=== PATIENT | male | born 1950 | race Caucasian/White ===

== ENCOUNTER 2017-08-27 20:17 | Emergency (ER) | payer MEDICARE, MEDICAID ==
[~2017-08-27] VITALS: Ht 172.7 cm; Wt 128.8 kg
[~2017-08-27 20:17] MED LIST: BENA5TAB5 OR; FURO80TA; METF-370 OR; NAPR1SUS OR; PIOG45TA8; POTA12PO2 OR
[2017-08-27 21:17] LABS: Basophils # (auto) 0.1 uL; Basophils % (auto) 0.7 % (0.0-2.0); Eosinophils # (auto) 0 uL; Eosinophils % (auto) 0.3 % (0.0-7.0); Hematocrit 44.9 % (41.0-53.0); Hemoglobin 15.1 g/dL (13.5-17.5); Lymphocytes # (auto) 0.7 uL; Lymphocytes % (auto) 8.8 % (10.0-50.0); Mean Corpuscular Hemoglobin 31.1 pg (28.0-32.0); Mean Corpuscular Hgb Conc. 33.7 g/dL (32.0-36.0); Mean Corpuscular Volume 92.3 fL (80.0-100.0); Monocytes # (auto) 0.9 uL; Monocytes % (auto) 11.5 % (0.0-12.0); Neutrophils # (auto) 6.3 uL; Neutrophils % (auto) 78.7 % (37.0-80.0); Nucleated Red Blood Cells % 0.1 %; Platelet Count (auto) 159 10^3/uL (140-450); Red Blood Cells 4.87 10^6/uL (4.5-5.90); Red Cell Distribution Width 14.9 % (11.8-14.3)
[2017-08-27 21:30] LABS: INR 0.95 (0.9-1.15); Partial Thromboplastin Time 28.2 sec (22.64-33.71); Prothrombin Time 10.4 sec (9.37-12.3)
[2017-08-27 21:34] LABS: Albumin 3.3 g/dL (3.4-5.0); Anion Gap 7 (5-15); Blood Urea Nitrogen 12 mg/dL (7-18); Carbon Dioxide 34 mmol/L (21-32); Chloride 93 mmol/L (98-107); Glucose 179 mg/dL (74-106); Potassium 3.4 mmol/L (3.5-5.1); Sodium 134 mmol/L (136-145)
[2017-08-27 21:42] LABS: Alanine Aminotransferase 31 U/L (16-61); Aspartate Aminotransferase 43 U/L (15-37); BUN/Creatinine Ratio 16.2; GFR African American 135 mL/min; GFR Non-African American 111 mL/min
[2017-08-27 21:54] LABS: Alkaline Phosphatase 70 U/L (45-117); Total Protein 8.1 g/dL (6.4-8.2)
[2017-08-28] MEDS ORDERED: IOHEXOL 350 MG/ML 100ML IJ ONE (00:21)
[2017-08-28] MEDS ORDERED: FURO20TA3 PO (00:42)
[2017-08-28] MEDS ORDERED: HCTZ25T GT (00:42)
[2017-08-28] MEDS ORDERED: POTA10TA51 PO (00:42)
[2017-08-28] MEDS ORDERED: GLIM4TAB42 PO (00:42)
[2017-08-28] MEDS ORDERED: PERCOT PO (00:42)
[2017-08-28] MEDS ORDERED: METF-370 PO (00:42)
[2017-08-28] MEDS ORDERED: SENN8.6T92 PO (00:42)
[2017-08-28] MEDS ORDERED: SIMV-13 PO (00:42)
[2017-08-28] MEDS ORDERED: BENA5TAB5 PO (00:42)
[2017-08-28 01:38] VITALS: BP 110/38
== END 2017-08-28 03:31 | disposition home or self-care (01) ==
LOC: ER 20:17
DX: R07.89 Other chest pain (principal); J44.9 Chronic obstructive pulmonary disease, unspecified; I27.20 Pulmonary hypertension, unspecified; E11.9 Type 2 diabetes mellitus without complications; Z90.89 Acquired absence of other organs; Z98.890 Other specified postprocedural states; Z79.899 Other long term (current) drug therapy; Z87.891 Personal history of nicotine dependence
CPT/HCPCS: 36415; 71045; 71275; 80053; 83735; 83880; 84484; 85025; 85610; 85730; 93005; 94761; 99285; Q9967